=== PATIENT | female | born 1950 | race Caucasian/White ===

== ENCOUNTER 2019-11-15 16:59 | Observation (INO) | payer MEDICARE, OTHER ==
[2019-11-15 17:29] LABS: #Eosinphils 0.1 thou/uL (0.0-0.7); #Lymphocytes 2.1 thou/uL (1.20-3.40); #Monocytes 0.7 thou/uL (0.11-0.59); #Neutrophils 5.5 thou/uL (1.40-6.50); %Basophils 0.6 % (0.0-1.0); %Eosinophils 1.3 % (0.0-10.0); %Lymphocytes 25.2 % (21.0-51.0); %Monocytes 8.2 % (0.0-10.0); %Neutrophils 64.8 % (42.0-75.0); Hemoglobin 15.1 g/dL (12.0-16.0); Mean Corpuscular HGB CONC 32.9 g/dL (32.0-36.0); Mean Corpuscular Hemoglobin 28.1 pg (27.0-31.0); Mean Corpuscular Volume 85.2 fL (78.0-98.0); Mean Platelet Volume 7.7 fL (7.4-10.4); Platelet Count 233 thou/uL (130-400); RBC Distribution Width 11.8 % (11.5-14.5); Red Blood Cell (RBC) Count 5.39 mill/uL (4.20-5.40); White Blood Cell (WBC) Count 8.5 thou/uL (4.8-10.8)
[2019-11-15 17:54] LABS: ALT (SGPT) 23 U/L (8-55); AST (SGOT) 21 U/L (5-34); Albumin 4.6 g/dL (3.4-4.8); Alkaline Phosphatase 97 U/L (40-110); Anion Gap 12 mmol/L (10-20); BUN (Urea Nitrogen) 14 mg/dL (9.8-20.1); Bilirubin, Total 0.4 mg/dL (0.2-1.2); CK (CPK) 85 U/L (29-168); Calc. Creatinine Clearance 0 mL/min (70-130); Carbon Dioxide 30 mmol/L (23-31); Chloride 98 mmol/L (98-107); Estimated GFR-MDRD 73; Globulin 3.2 g/dL (2.4-3.5); Glucose 96 mg/dL (80-115); Lipase 77 U/L (8-78); Potassium 3.9 mmol/L (3.5-5.1); Protein, Total 7.8 g/dL (6.0-8.3); Sodium 136 mmol/L (136-145)
--- NOTE | 2019-11-15 17:54 | RAD ---
SINGLE VIEW OF THE CHEST: 11/15/19 COMPARISON: 01/13/19 HISTORY: Mid sternal chest pain with dizziness. FINDINGS: Single view of the chest shows a normal sized cardiomediastinal silhouette. There is no evidence of c onsolidation, mass, or pleural effusion. The bones are unremarkable. IMPRESSION: No evidence of acute cardiopulmonary disease. POS: EAA
--- NOTE | 2019-11-15 19:11 | PDOC.HHP ---
Hospitalist HPI - History of Present Illness chest pain History of Present Illness: Mrs Avina is a very pleasant 69 year old female who has a PMH significant for hypertension and hyperlipidemia. The patient was at home today resting and had a "sophie" pain in her midsternal chest area which was not relieved by anything and had no precipitating factors. She said it hurt to the point where she felt like she could not take a deep breath in. The pain did not radiate anywhere. She did become diaphoretic and vomited once. After vomiting she stated the pain felt better, the pain had been constant until that time. No medications were tried at home to relieve the pain. Last week she went to her family physician for a wellness check and her heart rate was in the 30s. Her MD discontinued her Bisoprolol/HCTZ 10/6.25 mg that she had been taking. He started her on HCTZ 12.5mg daily and Losartan 100 mg daily which she has now been on for a week. During this time she has reported several instances of feeling like she may black out but she has not passed out or fallen yet at this time. She did say that when monitoring at home her blood pressure and pulse seemed to be doing well with the medication changes. Yesterday, she went back to her PCP for a follow up on her new medications and he told her she was having "high spikes" on her EKG and she said when she would have a couple of those beats together she would get the feeling that she could possibly black out. He started her on Bystolic 10 mg and she has had two doses since prescribed yesterday. ED Course: In the ER an EKG was completed, lab work, and a chest xray. No medications were administered and she has remained pain free. Hospitalist ROS - Review of Systems Constitutional: reports: sweats (diaphoretic during chest pain earlier) Eyes: denies: pain, vision change, conjunctivae inflammation, eyelid inflammation, redness, other ENT: denies: ear pain, ear discharge, nose pain, nose discharge, nose congestion , mouth pain, mouth swelling, throat pain, throat swelling, other Respiratory: denies: cough, dry, shortness of breath, hemoptysis, SOB with excertion, pleuritic pain, sputum, wheezing, other Cardiovascular: reports: chest pain (resolved at home), light headedness ( intermittent since last week) Gastrointestinal: reports: vomiting (vomited x1 during chest pain) Genitourinary: denies: dysuria, frequency, incontinence, hematuria, retention, other Musculoskeletal: denies: neck pain, shoulder pain, arm pain, back pain, hand pain, leg pain, foot pain, other Skin: denies: rash, lesions, tadeo, bruising, other Neurological: denies: weakness, numbness, incoordination, change in speech, confusion, seizures, other All other systems reviewed; all pertinent +/- noted in HPI/Subj - Medication Medications: NKDA Home Medications: HCTZ 12.5mg PO daily Losartan 100mg PO daily Bystolic 10mg PO daily Hospitalist History - Past Medical History Source: patient Cardiac: reports: HTN, Hyperlipidemia (no current medication. diet controlled) Pulmonary: reports: no pertinent history [employer]: reports: no pertinent history Gastrointestinal: reports: no pertinent history Heme/Onc: reports: no pertinent history Hepatobiliary: reports: no pertinent history Psych: reports: no pertinent history Musculoskeletal: reports: no pertinent history Rheumatologic: reports: no pertinent history Infectious Disease: reports: no pertinent history ENT: reports: no pertinent history Renal/: reports: no pertinent history Endocrine: reports: no pertinent history Dermatology: reports: no pertinent history - Past Surgical History Past Surgical History: reports: Hysterectomy - Family History Family History: reports: cardiac disorder - Social History Smoking Status: Never smoker Alcohol: reports: None Drugs: reports: none Living Situation: With Family Occupation: Retired. Activity level: independent ambulation - Exam General Appearance: NAD (VITAL SIGNS BP: 156 / 84, Pulse: 69, Resp: 16, Pain: 0 , O2 Sat: 98), awake alert Eye: PERRL, anicteric sclera ENT: moist mucosa Neck: supple, symmetric, no JVD, no lymphadenopathy Heart: RRR, no murmur, no gallops, no rubs Respiratory: CTAB, no wheezes, no rales, no ronchi Gastrointestinal: soft, non-tender, non-distended, normal bowel sounds Extremities: no cyanosis, no edema Psychiatric: normal affect, normal behavior Hospitalist Results - Labs Result Diagrams: 11/16/19 05:26 11/16/19 05:26 Lab results: WBC 8.5 thou/uL (4.8-10.8) 11/15/19 17:13 Hgb 15.1 g/dL (12.0-16.0) 11/15/19 17:13 Hct 45.9 % (36.0-47.0) 11/15/19 17:13 MCV 85.2 fL (78.0-98.0) 11/15/19 17:13 Plt Count 233 thou/uL (130-400) 11/15/19 17:13 Neutrophils % 64.8 % (42.0-75.0) 11/15/19 17:13 Sodium 136 mmol/L (136-145) 11/15/19 17:13 Potassium 3.9 mmol/L (3.5-5.1) 11/15/19 17:13 Chloride 98 mmol/L (98-107) 11/15/19 17:13 Carbon Dioxide 30 mmol/L (23-31) 11/15/19 17:13 BUN 14 mg/dL (9.8-20.1) 11/15/19 17:13 Creatinine 0.78 mg/dL (0.6-1.1) 11/15/19 17:13 Glucose 96 mg/dL (80-115) 11/15/19 17:13 Calcium 9.0 mg/dL (7.8-10.44) 11/15/19 17:13 Total Bilirubin 0.4 mg/dL (0.2-1.2) 11/15/19 17:13 AST 21 U/L (5-34) 11/15/19 17:13 ALT 23 U/L (8-55) 11/15/19 17:13 Alkaline Phosphatase 97 U/L (40-110) 11/15/19 17:13 Creatine Kinase 85 U/L (29-168) 11/15/19 17:13 Troponin I Less than 0.010 ng/mL (< 0.028) 11/15/19 17:13 B-Natriuretic Peptide 53.0 pg/mL (0-100) 11/15/19 17:13 Serum Total Protein 7.8 g/dL (6.0-8.3) 11/15/19 17:13 Albumin 4.6 g/dL (3.4-4.8) 11/15/19 17:13 Lipase 77 U/L (8-78) 11/15/19 17:13 Laboratory Tests 11/15/19 11/15/19 11/15/19 17:13 17:13 17:13 D-Dimer Less than 0.27 L Troponin I Less than 0.010 B-Natriuretic Peptide 53.0 - EKG Interpretation EKG: SR 68 - Radiology Interpretation Chest x-ray Status: image reviewed by me, report reviewed by me Additional Comment: IMPRESSION: No evidence of acute cardiopulmonary disease Hospitalist H&P A/P - Problem (1) Chest pain Code(s): R07.9 - CHEST PAIN, UNSPECIFIED Status: Acute Qualifiers: Chest pain type: unspecified Qualified Code(s): R07.9 - Chest pain, unspecified (2) HTN (hypertension) Code(s): I10 - ESSENTIAL (PRIMARY) HYPERTENSION Status: Chronic Qualifiers: Hypertension type: essential hypertension Qualified Code(s): I10 - Essential (primary) hypertension (3) Hyperlipidemia Code(s): E78.5 - HYPERLIPIDEMIA, UNSPECIFIED Status: Chronic Qualifiers: Hyperlipidemia type: unspecified Qualified Code(s): E78.5 - Hyperlipidemia , unspecified - Plan Plan: Admit to telemetry as observation GI and DVT prophylaxis Continue to trend troponins Mag and TSH ordered, CBC, BMP, FLP in am API ARCHITECT in AM Full code Surrogate decision maker: , Abhijit Avina [phone]
[2019-11-15] MEDS ORDERED: Nitroglycerin 2% Ointment 1 INCH/1 GM Packet ONE (19:53)
[2019-11-15] MEDS ORDERED: Ondansetron PF 4 MG/2 ML Vial IVP PRN (20:47)
[2019-11-15] MEDS ORDERED: Ondansetron ODT 4 MG TAB SL PRN (20:47)
[2019-11-15] MEDS ORDERED: Aspirin 325 MG TAB PO SCH (21:00)
[2019-11-15] MEDS ORDERED: Sodium Chloride 0.9% 1,000 ML IV SCH (21:00)
[2019-11-15] MEDS ORDERED: Acetaminophen 325 MG TAB PO PRN (21:23)
[2019-11-15 21:43] LABS: Troponin I Less than 0.010 ng/mL (< 0.028)
[2019-11-15] MEDS ORDERED: Nitroglycerin 2% Ointment 1 INCH/1 GM Packet TOP SCH (21:45)
[2019-11-15] MEDS ORDERED: Enoxaparin Sodium 40 MG/0.4 ML SYRINGE SC SCH (21:45)
[2019-11-16 01:06] LABS: Troponin I Less than 0.010 ng/mL (< 0.028)
[2019-11-16 01:29] VITALS: BMI 30.8
[2019-11-16] MEDS ORDERED: Nitroglycerin 2% Ointment 1 INCH/1 GM Packet TOP SCH ×2 (02:00→09:00)
[2019-11-16 05:43] LABS: #Eosinphils 0.1 thou/uL (0.0-0.7); #Lymphocytes 1.9 thou/uL (1.20-3.40); #Monocytes 0.5 thou/uL (0.11-0.59); #Neutrophils 5.2 thou/uL (1.40-6.50); %Basophils 0.2 % (0.0-1.0); %Eosinophils 0.7 % (0.0-10.0); %Lymphocytes 24.7 % (21.0-51.0); %Monocytes 6.1 % (0.0-10.0); %Neutrophils 68.4 % (42.0-75.0); Mean Corpuscular HGB CONC 32.8 g/dL (32.0-36.0); Mean Corpuscular Hemoglobin 27.6 pg (27.0-31.0); Mean Corpuscular Volume 84.2 fL (78.0-98.0); Mean Platelet Volume 8.1 fL (7.4-10.4); Platelet Count 224 thou/uL (130-400); RBC Distribution Width 11.7 % (11.5-14.5); Red Blood Cell (RBC) Count 5.08 mill/uL (4.20-5.40); White Blood Cell (WBC) Count 7.6 thou/uL (4.8-10.8)
[2019-11-16 06:02] LABS: Anion Gap 11 mmol/L (10-20); BUN (Urea Nitrogen) 13 mg/dL (9.8-20.1); Calc. Creatinine Clearance 88 mL/min (70-130); Calcium 8.4 mg/dL (7.8-10.44); Carbon Dioxide 28 mmol/L (23-31); Cardiac Risk 4.4 (Less than 4.5); Chloride 106 mmol/L (98-107); Cholesterol 209 mg/dl (< 200 Desired); Estimated GFR-MDRD 78; Glucose 99 mg/dL (80-115); HDL Cholesterol 47 mg/dL (>60 Neg Risk); LDL Cholesterol, Calculated 138 mg/dL; Potassium 4.1 mmol/L (3.5-5.1); Sodium 141 mmol/L (136-145); Triglycerides 122 mg/dL (Less than 150)
[2019-11-16] MEDS ORDERED: Aspirin 325 mg Enteric Coated Tablet PO SCH (09:00)
[2019-11-16] MEDS ORDERED: Pantoprazole 40 MG VIAL IVP SCH (09:00)
[2019-11-16] MEDS ORDERED: Enoxaparin Sodium 40 MG/0.4 ML SYRINGE SC SCH (09:00)
[2019-11-16] MEDS ORDERED: Regadenoson 0.4 MG/5 ML SYRINGE ONE (09:05)
--- NOTE | 2019-11-16 12:27 | PDOC.HOSPP ---
- Subjective Encounter Date: 11/16/19 Encounter Time: 10:00 Subjective: no further chest pain or sob - Objective Vital Signs & Weight: Vital Signs (12 hours) Temp Pulse Resp BP Pulse Ox 11/16/19 07:43 97.7 F 77 20 155/81 H 97 11/16/19 05:03 98.1 F 78 20 135/81 97 Weight Weight 168 lb 8 oz I&O: 11/15/19 11/16/19 11/17/19 06:59 06:59 06:59 Intake Total 840 Balance 840 Result Diagrams: 11/16/19 05:26 11/16/19 05:26 Hospitalist ROS - Medication Medications: Active Medications Generic Name Dose Route Start Last Admin Trade Name Freq PRN Reason Stop Dose Admin Enoxaparin Sodium 40 mg 11/16/19 09:00 11/16/19 09:45 Lovenox SC 40 mg 0900 [place] Administration Pantoprazole Sodium 40 mg 11/16/19 09:00 11/16/19 09:46 Protonix IVP 40 mg DAILY [place] Administration - Exam General Appearance: awake alert Eye: PERRL, anicteric sclera ENT: no oropharyngeal lesions, moist mucosa Neck: supple, no JVD Heart: RRR, no murmur Respiratory: no wheezes, no rales Gastrointestinal: soft, non-tender, non-distended, normal bowel sounds Extremities: no cyanosis, no edema Neurological: cranial nerve grossly intact, no focal deficits Psychiatric: normal affect, A&O x 3 Hosp A/P (1) Chest pain Code(s): R07.9 - CHEST PAIN, UNSPECIFIED Status: Acute Qualifiers: Chest pain type: unspecified Qualified Code(s): R07.9 - Chest pain, unspecified (2) Obesity (BMI 30.0-34.9) Code(s): E66.9 - OBESITY, UNSPECIFIED Status: Chronic (3) HTN (hypertension) Code(s): I10 - ESSENTIAL (PRIMARY) HYPERTENSION Status: Chronic Qualifiers: Hypertension type: essential hypertension Qualified Code(s): I10 - Essential (primary) hypertension (4) Hyperlipidemia Code(s): E78.5 - HYPERLIPIDEMIA, UNSPECIFIED Status: Chronic Qualifiers: Hyperlipidemia type: unspecified Qualified Code(s): E78.5 - Hyperlipidemia , unspecified - Plan await stress test results trop x3 is -ve ldl is 138 continue current meds dc plan home if stress test is -ve d/w patient and daughter at bedside
--- NOTE | 2019-11-16 13:24 | NM ---
NUCLEAR MEDICINE CARDIAC MYOCARDIAL PERFUSION SPECT EJECTION FRACTION STUDY WALL MOTION CINE: DATE: 11/16/2019 HISTORY: 69 year old female with hypertension and dyslipidemia presents with chest pain TECHNIQUE: Number of days: 1 Rest study: Technetium 99m-sestamibi (Cardiolite) dose: 9.3 mCi Pharmacologic stress: Lexiscan dose: 0.4 mg Stress study: Technetium 99m-sestamibi (Cardiolite) dose: 29.0 mCi FINDINGS: CARDIAC (MYOCARDIAL PERFUSION) SPECT There are no reversible myocardial perfusion defects. EJECTION FRACTION STUDY Left ventricular EF = 69 % WALL MOTION CINE Normal IMPRESSION: No evidence of reversible ischemia.
[2019-11-16 15:28] VITALS: BP 138/60; TEMP 98
--- NOTE | 2019-11-17 11:06 | DIS ---
DATE OF ADMISSION: 11/15/2019 DATE OF DISCHARGE: 11/16/2019 DISCHARGE DISPOSITION: Home. PRIMARY DISCHARGE DIAGNOSIS: Chest pain, which is noncardiac. SECONDARY DISCHARGE DIAGNOSES: Obesity, hypertension, dyslipidemia. PROCEDURES DONE DURING HOSPITALIZATION: Chest x-ray done showed no acute cardiopulmonary abnormalities. Nuclear stress test done showed normal wall motion with no evidence of reversible ischemia. Ejection fraction was 69% on the stress test. H and H 14 and 42, platelet count 224, MCV is 84, white count of 7. D-dimer less than 0.27. Total cholesterol 209, triglycerides 122, LDL 138, HDL 47. Troponin x3 negative. TSH 2.9. BNP 53. DISCHARGE MEDICATIONS: 1. Hydrochlorothiazide 12.5 mg p.o. daily. 2. Losartan 100 mg p.o. daily. 3. Bystolic 10 mg daily. 4. Atorvastatin 20 mg daily. ALLERGIES: NO KNOWN DRUG ALLERGIES. DISCHARGE PLAN: The patient is to follow up with Dr. Jose Francisco Goodwin in 1 week. She is also advised to check blood pressure and pulse twice daily and record for 10 days to follow up with primary care physician. BRIEF COURSE DURING HOSPITALIZATION: The patient initially came to ER with complaints of chest pain. In view of risk factors, the patient was placed under observation on telemetry. She has had adjustments being done by her primary care physician for her hypertension. She has had 3 sets of troponin being negative. Nuclear stress test done showed no reversible ischemia. Her chest x-ray did not reveal any acute infiltrate. She remained afebrile all through her stay. There was no exposure to COVID-19. She has remained hemodynamically stable and will be shortly discharged home. Please see a [id number] documentation for the day of discharge on [employer]. Job ID: [id number]
--- NOTE | 2019-11-26 14:48 | EKG ---
Test Reason : Blood Pressure : / mmHG Vent. Rate : 068 BPM Atrial Rate : 068 BPM P-R Int : 172 ms QRS Dur : 074 ms QT Int : 416 ms P-R-T Axes : 062 -39 024 degrees QTc Int : 442 ms Normal sinus rhythm Left axis deviation Septal infarct , age undetermined Inferior infarct , age undetermined Abnormal ECG Confirmed by DEANDRE GARCIA, JIMBO ([id number]), website/blog editor VIC JAMES ([id number]) on 11/26/2019 2:48:17 PM Referred By: Confirmed By:JIMBO CARRERA MD
== END 2019-11-16 17:55 | disposition home or self-care (01) ==
LOC: ERS 16:59 → 2SE 19:00
PROVIDERS: ADMIT Internal Medicine; ATTEND Internal Medicine
DX: R07.89 Other chest pain (principal); I10 Essential (primary) hypertension; E78.5 Hyperlipidemia, unspecified; E66.9 Obesity, unspecified; Z68.30 Body mass index [BMI] 30.0-30.9, adult; Z79.899 Other long term (current) drug therapy
CPT/HCPCS: 71045; 78452; 80048; 80061; 82550; 83690; 83735; 83880; 84484 ×3; 85025; 85379; 93005; 93017; 96361 ×2; 96372 ×2; 96376; 99285; A9500; G0378 ×3; 36415; 80053; 84443; C9113; J1650; J2785

== ENCOUNTER 2020-02-08 05:51 | Observation (INO) | payer MEDICARE, OTHER ==
[2020-02-08] MEDS ORDERED: Heparin 10,000 UNITS/ 10 ML VIAL ONE ×2 (06:32→09:37)
[2020-02-08] MEDS ORDERED: Fentanyl 100 MCG/2 ML VIAL ONE (07:17)
[2020-02-08] MEDS ORDERED: Midazolam HCl 2 mg/2 ml Vial ONE ×2 (07:17→07:38)
[2020-02-08] MEDS ORDERED: Isoproterenol 0.2 MG/1 ML AMP ONE ×2 (08:53→10:08)
[2020-02-08] MEDS ORDERED: Heparin 25,000 units/D5W 500 ML ONE (09:37)
[2020-02-08] MEDS ORDERED: PROPOFOL 200 MG/20 ML VIAL ONE (10:13)
[2020-02-08] MEDS ORDERED: Dexamethasone 20 MG/5 ML VIAL ONE (10:13)
[2020-02-08] MEDS ORDERED: Ondansetron PF 4 MG/2 ML Vial ONE (10:13)
[2020-02-08] MEDS ORDERED: Rocuronium Bromide 10 MG/ML (10ML VIAL) ONE (10:13)
[2020-02-08] MEDS ORDERED: Protamine Sulfate 50 MG/5 ML VIAL ONE (11:04)
[2020-02-08 13:19] VITALS: BMI 30.7
[2020-02-08] MEDS ORDERED: Ketorolac Tromethamine 30 MG/ML VIAL IVP PRN ×2 (13:29→13:30)
[2020-02-08] MEDS ORDERED: Acetaminophen/Codeine 30-300mg Tablet PO PRN ×4 (13:30)
[2020-02-08] MEDS ORDERED: Calcium Carbonate 500 MG ChewTAB PO PRN (13:33)
[2020-02-08] MEDS ORDERED: Ibuprofen 200 MG TAB PO PRN (13:33)
[2020-02-08] MEDS ORDERED: Cepastat Lozenges 1 LOZ PO PRN (13:33)
--- NOTE | 2020-02-08 15:17 | OP ---
DATE OF PROCEDURE: 02/08/2020 PROCEDURE PERFORMED: Electrophysiology study and radiofrequency ablation. REASON FOR PROCEDURE: Ms. Avina is a pleasant 69-year-old woman with a history of bigeminy PVCs, also event monitor demonstrating a narrow complex supraventricular tachycardia, possible AVNRT. She has high symptomatic palpitations. Here for EP study and radiofrequency ablation. DESCRIPTION OF PROCEDURE: The patient received general anesthesia by Anesthesia specialist. The left and right femoral vein was prepped and draped and anesthetized using subcutaneous lidocaine during the procedure. The left femoral vein was cannulated x2 under ultrasound guidance and a 6-Bulgarian sheath was used to advance a decapolar and octapolar catheters to the right atrium, right ventricle, His bundle, and CS positions. On the right femoral vein, an 11-Bulgarian short sheath was introduced under ultrasound guidance. Through the 11-Bulgarian sheath, an intracardiac ultrasound probe was passed into the right atrium to monitor catheter manipulation and also pericardial space throughout the procedure. Also during the case, the right femoral artery was accessed with an 8-Bulgarian short sheath. Through the right femoral venous site, the catheter was advanced through the left shunt the right atrium. Right atrial map was obtained with His and CS positions marked. Patient was in monomorphic ventricular bigeminy. The catheter was advanced to the right ventricle and right ventricular 3D map was obtained. The earliest activation was mapped from the right ventricle to the outflow tract in the anterolateral portion - 40 milliseconds, pre-QRS activation was seen and radiofrequency ablation lesions were delivered in this location, though these lesion fair to eliminate the PVCs. Following that, through the right femoral arterial access, the aortic cusps were mapped, but no early activation of the PVCs were seen. IV heparin was administered prior to left atrial and aortic manipulation. Heparin was adjusted throughout the case to keep ACT over 350. With retroflexion method , the LV was entered via the aorta and further mapping in the left ventricular outflow tract and mitral valve annular were obtained. The earliest activation at the left ventricular outflow tract was seen underneath the commissure from left and right coronary cusps were noted to be earliest. Up to 80 milliseconds earliest activation was seen in this location. Radiofrequency ablation in this area eliminated the PVCs. The catheters were withdrawn from the left side and heparin was stopped. Isuprel was administered, but no further PVCs were noted. Burst atrial pacing induced a non sustained, narrow complex tachycardia with cycle length of 296 milliseconds, which was very short VA timing, typical AV leeanne reentrant tachycardia. Also, dual AV leeanne physiology was present at baseline, overdrive to ventricular pacing was performed, which terminated the arrhythmia. Decision was made to proceed with slow pathway modification. During the slow pathway mantilla, junctional escape rhythm was seen. Occasional VA block was noted, on which the burn was promptly terminated. We delivered 50 toth, 60 degrees cutoff without irrigation at this point. Further burst atrial pacing maneuver induced different atrial tachycardia with long VA timing. This atrial tachycardia was mapped from the right atrium. Early activation was noted at the junction area of the SVC and the anterior right atrium. High-voltage pacing here did not activate the diaphragmatic nerve. The radiofrequency ablation was delivered at this point, eliminating that particular atrial tachycardia. Further burst atrial pacing maneuvers were performed and atrial fibrillation was induced. Also, an additional atrial tachycardia was shortly induced, but were not sustained for mapping purposes. Atrial fibrillation was cardioverted. On washout of Isuprel, no further arrhythmia was seen. The intracardiac echo revealed no change in the pericardial space nor effusion noted. The cardiac silhouette had not changed throughout the procedure. IV protamine was used to reverse the heparin effect and the catheters were removed from the body. Vascade closure was performed all four femoral venous access sites under ultrasound guidance. Also, the right femoral arterial access site was also Vascade closed. Manual pressure was also applied for hemostasis. The patient tolerated the procedure well, extubated in the catholic priest. No complications noted. NUMERICAL FINDINGS: Baseline rhythm was sinus rhythm with PVCs. Cycle length 738 milliseconds, MS 194 milliseconds, QRS 71 milliseconds, QT 375 milliseconds, AH 126 milliseconds, HV 56 milliseconds, AV Wenckebach cycle length was 380 milliseconds, retrograde Wenckebach cycle length was 590 milliseconds, AV leeanne ERP was 600/ 180 milliseconds. The dual AV leeanne physiology was noted. Concentric VA conduction was seen during the case. Again, frequent PVCs were seen and ablated. Also AVNRT with cycle length 296 milliseconds. Atrial tachycardia at 390 milliseconds was seen. Post ablation, the sinus cycle length 652 milliseconds, Wenckebach 360 milliseconds, AV leeanne ERP was 500/180 milliseconds. Total ablation time 10 minutes and 53 seconds. Total lesions delivered were # 28. CONCLUSION: 1. Successful ablation of left ventricular outflow tract focus premature ventricular contractions. 2. 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 3. Additional right atrial tachycardia was induced and ablated from the superior vena cava/anterior right atrial roof junction area. 4. Atrial fibrillation an additional atrial tachycardia were also inducible on high-dose Isuprel. Atrial fibrillation required cardioversion. PLAN: Routine post ablation care. Enteric-coated aspirin for month and 81 mg and also monitor for furhter atrial fibrillation. For now, no oral anticoagulation advised unless recurrent atrial fibrillation seen. Job ID: [id number] [facility]
[2020-02-08] MEDS ORDERED: Atorvastatin Calcium 20 MG TAB PO SCH (21:00)
[2020-02-09 07:11] VITALS: BP 141/69; TEMP 98.3
[2020-02-09] MEDS ORDERED: Aspirin 81 mg Enteric Coated Tablet PO SCH (09:00)
[2020-02-09] MEDS ORDERED: Losartan 25 MG TAB PO SCH (09:00)
[2020-02-09] MEDS ORDERED: Nebivolol HCl 5 MG TAB PO SCH (09:00)
[2020-02-09] MEDS ORDERED: Hydrochlorothiazide 25 MG TAB PO SCH (09:00)
== END 2020-02-09 11:35 | disposition home or self-care (01) ==
LOC: CCL 05:51 → 2SW 12:40
PROVIDERS: ADMIT Internal Medicine Cardiovascular Disease; ATTEND Internal Medicine Cardiovascular Disease
PROC: 4A023FZ Measurement of Cardiac Rhythm, Percutaneous Approach (ICD-10-PCS; principal; 2020-02-08)
PROC: 4A0234Z Measurement of Cardiac Electrical Activity, Percutaneous Approach (ICD-10-PCS; 2020-02-08)
PROC: 02583ZZ Destruction of Conduction Mechanism, Percutaneous Approach (ICD-10-PCS; 2020-02-08)
DX: I47.1 Supraventricular tachycardia (principal); I49.3 Ventricular premature depolarization; I10 Essential (primary) hypertension; E78.5 Hyperlipidemia, unspecified; Z79.899 Other long term (current) drug therapy
CPT/HCPCS: 76942; 85347 ×2; 92960; 93005 ×2; 93613; 93623; 93653; 93654; 93662; C1730; C1732; C1759; 93010; G0378; J1100; J1644; J2250; J2405; J2704; J2720; J3010

== ENCOUNTER 2021-05-01 10:15 | Outpatient (CLI) | payer MEDICARE, OTHER ==
[2021-05-01 11:36] LABS: Mean Corpuscular HGB CONC 32.2 g/dL (32.0-36.0); Mean Corpuscular Hemoglobin 27.4 pg (27.0-33.0); Mean Corpuscular Volume 85.1 fl (81.6-98.3); Mean Platelet Volume 10.4 fl (7.4-10.4); Platelet Count 269 10x3/uL (150-450); RBC Distribution Width 13.6 % (11.5-14.5); Red Blood Cell (RBC) Count 5.11 10x6/uL (3.90-5.03); White Blood Cell (WBC) Count 7.7 10x3/uL (3.5-10.5)
[2021-05-01 11:38] LABS: INR-International Normal Ratio 0.9; PTT 27.9 sec (22.0-33.0); Prothrombin Time 10.5 sec (9.5-12.1)
[2021-05-01 11:43] LABS: Anion Gap 10 mmol/L (10-20); BUN (Urea Nitrogen) 14 mg/dL (9.8-20.1); Calc. Creatinine Clearance 0 mL/min (70-130); Calcium 8.9 mg/dL (7.8-10.44); Carbon Dioxide 29 mmol/L (23-31); Chloride 103 mmol/L (98-107); Glucose 94 mg/dL (80-115); Potassium 4.4 mmol/L (3.5-5.1); Sodium 138 mmol/L (136-145)
[2021-05-01 17:23] LABS: SARS-CoV-2 PCR by NAA Not Detected (NotDetected)
== END 2021-05-01 10:16 | disposition home or self-care (01) ==
LOC: LABBT 10:15
PROVIDERS: ATTEND Internal Medicine Cardiovascular Disease
DX: Z01.812 Encounter for preprocedural laboratory examination (principal); I48.0 Paroxysmal atrial fibrillation; Z20.822 Contact with and (suspected) exposure to COVID-19
CPT/HCPCS: 80048; 85027; 85610; 85730; U0003; U0005

== ENCOUNTER 2021-05-06 05:52 | Day surgery (SDC) | payer MEDICARE, OTHER ==
[2021-04-30 14:44] VITALS: BMI 28.8
[2021-05-06] MEDS ORDERED: PROPOFOL 200 MG/20 ML VIAL ONE (07:20)
[2021-05-06] MEDS ORDERED: Lidocaine 1% PF 5 ML VIAL ONE (07:20)
[2021-05-06] MEDS ORDERED: Flecainide 50 MG TAB PO SCH (08:00)
[2021-05-06] MEDS ORDERED: PROPOFOL 20 ML ONE (09:27)
== END 2021-05-06 09:05 | disposition home or self-care (01) ==
LOC: CCL 05:52
PROVIDERS: ATTEND Internal Medicine Cardiovascular Disease
PROC: 5A2204Z Restoration of Cardiac Rhythm, Single (ICD-10-PCS; principal; 2021-05-06)
DX: I48.19 Other persistent atrial fibrillation (principal); E78.5 Hyperlipidemia, unspecified; I10 Essential (primary) hypertension; I49.3 Ventricular premature depolarization; I47.1 Supraventricular tachycardia; Z79.01 Long term (current) use of anticoagulants; Z79.82 Long term (current) use of aspirin; Z79.899 Other long term (current) drug therapy
CPT/HCPCS: 92960; 93005; 93010; J2704